=== PATIENT | male | born 1940 | race Caucasian/White ===

== ENCOUNTER 2019-01-25 01:40 | Emergency (ER) | payer OTHER ==
[~2019-01-25] VITALS: Ht 182.9 cm; Wt 77.7 kg
[2019-01-25 01:45] VITALS: Ht 182.9 cm; Wt 77.7 kg
[2019-01-25 02:46] VITALS: BP 125/68
== END 2019-01-25 02:46 | disposition home or self-care (01) ==
LOC: ED 01:40
DX: I10 Essential (primary) hypertension (principal); E78.00 Pure hypercholesterolemia, unspecified

== ENCOUNTER 2019-02-04 10:43 | Emergency (ER) | payer OTHER ==
[~2019-02-04] VITALS: Ht 188 cm; Wt 77.1 kg
[2019-02-04 10:45] VITALS: Ht 188 cm; Wt 77.1 kg
[2019-02-04 11:42] LABS: BASOPHIL % 0.4 % (0-2); PLATELET COUNT 330 x10^3mcL (130-400)
[2019-02-04 11:52] LABS: RED CELL DISTRIBUTION WIDTH 15.1 % (11.5-14.5)
[2019-02-04 11:55] LABS: CALCIUM 8.4 mg/dL (8.5-10.1); CARBON DIOXIDE 30.7 mmol/L (21-32); CHLORIDE SERUM 104 mmol/L (98-107); CREATININE SERUM 1.2 mg/dL (0.7-1.3); GLUCOSE SERUM 119 mg/dL (74-106); POTASSIUM SERUM 4.5 mmol/L (3.5-5.1); SODIUM SERUM 139 mmol/L (136-145)
[2019-02-04 12:06] LABS: ALKALINE PHOSPHATASE 101 U/L (46-116); ALT/SGPT 22 U/L (16-63); AST/SGOT 19 U/L (15-37); BILIRUBIN TOTAL 0.4 mg/dL (0.20-1.00); LIPASE 93 IU/L (73-393); MAGNESIUM 1.7 mg/dL (1.8-2.4); T4(THYROXINE) 6.1 ug/dL (4.7-13.3); TOTAL PROTEIN, SERUM 6.6 g/dL (6.4-8.2)
[2019-02-04 12:11] LABS: ALBUMIN 2.5 g/dL (3.4-5.0); CHOLESTEROL 114 mg/dL (<200); HDL CHOLESTEROL 32 mg/dL (40-60)
[2019-02-04] MEDS ORDERED: NIASPAN500 MG (12:27)
[2019-02-04] MEDS ORDERED: CITALOPRAM HYDR20 M1 PO (12:27)
[2019-02-04] MEDS ORDERED: GOOD SENSE ASP325 MG (12:27)
[2019-02-04] MEDS ORDERED: SIMVASTATIN20 M1 (12:28)
[2019-02-04] MEDS ORDERED: PRINIVIL5 MG (12:28)
[2019-02-04] MEDS ORDERED: METOPROLOL SUCC50 M2 (12:28)
[2019-02-04 12:42] LABS: UA SPECIFIC GRAVITY >=1.030 (1.005-1.035); microscopic required? YES; urine erythrocyte 3+ (NEGATIVE)
[2019-02-04 13:32] LABS: AMPHETAMINE QUAL UR NONE DETECTED (See below)
[2019-02-04 18:10] VITALS: BP 142/70
== END 2019-02-04 18:10 | disposition short-term general hospital (02) ==
LOC: ED 10:43 → EDBEDREQSVC 17:15 → ED 18:10
PROVIDERS: Emergency Medicine
DX: R53.1 Weakness (principal); D64.9 Anemia, unspecified; I25.10 Atherosclerotic heart disease of native coronary artery without angina pectoris; I10 Essential (primary) hypertension; E78.00 Pure hypercholesterolemia, unspecified; Z95.1 Presence of aortocoronary bypass graft; Z98.890 Other specified postprocedural states
CPT/HCPCS: 36415; 83880; G0480; Q9967

== ENCOUNTER 2019-02-25 18:10 | Observation (INO) | payer OTHER ==
[~2019-02-25] VITALS: Ht 182.9 cm; Wt 77.7 kg
[~2019-02-25 18:10] MED LIST: CITALOPRAM HYDR20 M1 PO; GOOD SENSE ASP325 MG; METOPROLOL SUCC50 M2; NIASPAN500 MG; PRINIVIL5 MG; SIMVASTATIN20 M1
--- NOTE | 2019-02-25 18:21 | NUR ---
PT BIB AMBULANCE FOR FREQUENT FALLS OVER THE LAST FEW DAYS. TODAY HE ROLLED OFF THE COUCH ONTO THE FLOOR AND DUE TO GEN WEAKNESS WAS NOT ABLE TO GET BACK UP. CLAIMS HE WAS JUST RELEASED FROM [facility] THIS AM FOR SAME. PT C/O GEN WEAKNESS AND GEN BODY PAIN 11/07. PT ARRIVES ALERT AND ORIENTED WITH ST 105. PER EMS BS WITHIN NORMAL LIMITS. 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 AFEBRILE UPON ARRIVAL. CONNECTED TO EVIDENCE TECHNICIAN AND AWAITING MD PERKINS
--- NOTE | 2019-02-25 18:59 | NUR ---
CASE AT BEDSIDE FOR EVAL
[2019-02-25 19:04] LABS: BASOPHIL % 0.1 % (0-2); PLATELET COUNT 397 x10^3mcL (130-400); RED CELL DISTRIBUTION WIDTH 15.2 % (11.5-14.5)
[2019-02-25 19:15] LABS: CALCIUM 7.3 mg/dL (8.5-10.1); CHLORIDE SERUM 101 mmol/L (98-107); CREATININE SERUM 0.7 mg/dL (0.7-1.3); GLUCOSE SERUM 114 mg/dL (74-106); POTASSIUM SERUM 4.6 mmol/L (3.5-5.1); SODIUM SERUM 132 mmol/L (136-145)
[2019-02-25 19:20] LABS: ALKALINE PHOSPHATASE 117 U/L (46-116); ALT/SGPT 115 U/L (16-63); AST/SGOT 93 U/L (15-37); BILIRUBIN TOTAL 0.26 mg/dL (0.20-1.00); MAGNESIUM 1.6 mg/dL (1.8-2.4)
[2019-02-25 19:21] LABS: ALBUMIN 1.1 g/dL (3.4-5.0); TOTAL PROTEIN, SERUM 4.4 g/dL (6.4-8.2)
--- NOTE | 2019-02-25 19:33 | NUR ---
REPORT RECEIVED AND CARE OF PATIENT ASSUMED. PT MEDICATED AND FLUIDS STARTED. PT RESTING FAIRLY COMFORTABLY IN BED. WILL CONTINUE TO MONITER.
[2019-02-25] MEDS ORDERED: GOOD SENSE ASP325 MG (20:43)
[2019-02-25] MEDS ORDERED: ZESTRIL5 MG (20:43)
[2019-02-25] MEDS ORDERED: CITALOPRAM HYDR20 M1 (20:44)
[2019-02-25] MEDS ORDERED: SIMVASTATIN20 M1 (20:45)
[2019-02-25] MEDS ORDERED: TOPROL XL25 MG (20:45)
--- NOTE | 2019-02-25 21:53 | NUR ---
RECEIVED PT FROM ED VIA [facility], CAME IN DUE TO FALLS AND WEAKNESS. AAOX4. DENIES HEADACHE/DIZZINESS. ABLE TO FOLLOW COMMANDS. SPEECH IS CLEAR. HAND MD PSYCHIATRY EQUAL. NO SOB NOTED, LUNG SOUNDS CTA,O2 SAT=97%, RA. DENIES CHEST PAIN/PRESSURE. DENIES ABDOMINAL DISCOMFORT. BOWEL SOUNDS ACTIVE. C/O POOR APPETITE FOR WEEKS. VOIDS. GENERALIZED WEAKNESS NOTED. C/O CRAMPS ON SHOULDERS AND BLE. W/ ECCHYMOSIS ON BUE, CAKE FROSTER. IV SITE PATENT AND INTACT. SIDE RAILS UPX2. CALL LIGHT ON REACH. HOB ELEVATED AT 45 DEG. RECEIVED PT FROM ED W/ ALBUMIN ONGOING. ENDORSED TO PRIMARY NURSE YEN FOR CONTINUITY OF CARE
[2019-02-25 22:18] VITALS: BP 135/60
[2019-02-25 22:21] VITALS: Ht 182.9 cm; Wt 77.7 kg
--- NOTE | 2019-02-26 00:05 | NUR ---
PT LAYING DOWN IN BED WITH EYES CLOSED AND HOB ELEVATED. BREATHING EVEN AND UNLABORED ON RA. NO ACUTE DISTREE NOTED. BED AT LOWEST SETTINGS. SIDE RAILS X2 UP. CALL LIGHT WITHING REACH. WILL CONT TO MONITOR.
--- NOTE | 2019-02-26 00:27 | NUR ---
PT C/O 08/08 BLE PAIN, NO ALLEVIATING FACTOR. MEDICATED WITH PRN TYLENOL PER JUN. NO ACUTE DISTRESS NOTED. WILL C0NT TO MONITOR.
[2019-02-26 05:37] VITALS: BP 143/51
--- NOTE | 2019-02-26 06:18 | NUR ---
PT SLEPT AT INTERVALS THROUGHOUT THE NIGHT, BREATHING EVEN AND UNLABORED ON RA. NO SIGNIFICANT CHANGES DURING SHIFT. ALL NEEDS ASSESSED AND ATTENDED TO. IV TO LFA INFUSING NS AT 50ML/HR. SITE WNL. NO ACUTE DISTRESS NOTED. BED AT LOWEST SETTING. SIDE RAILS X2 UP. CALL LIGHT WITHING REACH. WILL ENDORSE CARE TO AM NURSE.
--- NOTE | 2019-02-26 07:03 | NUR ---
ARE ENDORSE TO CHARGE NURSE GARY.
[2019-02-26 09:04] VITALS: BP 122/59
[2019-02-26 16:37] VITALS: BP 122/59
[2019-02-26 17:07] VITALS: BP 158/83
--- NOTE | 2019-02-26 17:11 | NUR ---
DISCHARGE INSTRCTIONS REVIEWED WITH PATIENT AND PATIENT'S DAUGHTER MADELAINE THOMSON, THEY VERBALIZED UNDERSTANDING. THEY MADE AWARE OF PATIENT WILL BE PICKED UP [place] AT 2100 TO [facility].
--- NOTE | 2019-02-26 18:07 | NUR ---
REPORT CALLED TO RACHEL HARKINS [place] FOR DISCHARGE. PATIENT TO DISCHARGE AT 9:00PM.PATIENT'S DAUGHTER MADE AWARE OF TIME OF DISCHARGE. PATIENT ALSO AWARE AND VERBALIZED UNDERSTANDING.
[2019-02-26 21:21] VITALS: BP 123/63
--- NOTE | 2019-02-26 22:54 | NUR ---
SPOKE WITH [facility] AND RECEIVED ETA OF 30-45 MINS FOR ARRIVAL OF TRANSPORT. PATIENT UPDATED.
--- NOTE | 2019-02-26 23:38 | NUR ---
PATIENT TRANSPORTED VIA [facility] WITH [facility] : BEKA THIBODEAUX. PATIENT CONFIRMS ALL BELONGINGS INTACT AND IN POSSESION. D/C DOCUMENTS HANDED TO TRANSPORTERS. NAME BRACELET AND IV REMOVED, CANNULA INTACT, DRESSING C/D/I. TOLERATE WELL.
== END 2019-02-26 23:40 | DRG 556 ==
LOC: ED 18:10 → MU 20:56
PROVIDERS: Emergency Medicine; ADMIT Internal Medicine Pulmonary Disease
DX: M62.81 Muscle weakness (generalized) (principal); E83.42 Hypomagnesemia; E83.51 Hypocalcemia; I11.9 Hypertensive heart disease without heart failure; I25.10 Atherosclerotic heart disease of native coronary artery without angina pectoris; E78.5 Hyperlipidemia, unspecified; Z91.81 History of falling; Z96.643 Presence of artificial hip joint, bilateral; Z95.1 Presence of aortocoronary bypass graft; Z87.891 Personal history of nicotine dependence
CPT/HCPCS: 90658; 90732; G0378; J1650; J1885; J3475; J7030; P9047; Q0092